=== PATIENT | male | born 1990 | race Caucasian/White ===

== ENCOUNTER 2016-12-20 09:10 | Emergency (ER) | payer SELFPAY ==
[~2016-12-20] VITALS: Ht 188 cm; Wt 77.8 kg
[~2016-12-20 09:10] MED LIST: PROT40TA PO; SUCR1TAB PO
[2016-12-20 09:13] VITALS: BP 124/78; PULSE 70; RESP 16; TEMP 97.4; O2SAT 100
[2016-12-20] MEDS ORDERED: TRAZ300T2 PO (09:24)
[2016-12-20] MEDS ORDERED: MEDR4PAK PO (09:30)
--- NOTE | 2016-12-20 09:31 | PD ---
HPI Chief Complaint: Musculoskeletal Complaint Time Seen by Provider: 09:25 Travel History International Travel<30 days: No Contact w/Intl Traveler<30days: No Traveled to known affect area: No History of Present Illness HPI The patient is a 26-year-old male who presents emergency department for left shoulder pain. The patient notes a 1 month history of left shoulder pain, thinks he may have injured his shoulder while working out at the gym. The pain is intermittent, worse over the last several days, located in the left shoulder. The pain is located just under the left acromioclavicular area, worse with abduction and certain movements, external/internal rotation does not exacerbate his pain. He denies any radiation of the pain down the left upper extremity and denies any associated numbness or tingling. The patient is left- hand dominant. He denies any blunt trauma or mechanical falls prior to the injury. Pain occasionally radiates to left scapula, however, he denies any pain in the left aspect of the neck. PFSH Past Medical History Asthma: Yes Anxiety: Yes Cardiovascular Problems: No Diminished Hearing: No Neurologic: No Psychiatric: Yes (Abuses Dilaudid, injects, DENIES DRUG USE 12/20/16) Respiratory: Yes Past Surgical History Neurologic Surgery: No Social History Alcohol Use: No Tobacco Use: No Substance Use: No (Cocoaine, Dilaudid, DENIES 12/20/16) Allergies-Medications (Allergen,Severity, Reaction): Coded Allergies: Shellfish (Unverified Allergy, Severe, Anaphylaxis, 12/20/16) Cat Dander (Verified Allergy, Mild, ITCHING, EYES WATER, 12/20/16) Reported Meds & Prescriptions Reported Meds & Active Scripts Active Reported Trazodone (Trazodone HCl) 300 Mg Tab 300 Mg PO HS Review of Systems Except as stated in HPI: all other systems reviewed are Neg Musculoskeletal: Positive: Pain, No: Myalgias, Weakness Skin: No Rash Neurologic: No: Paresthesia, Sensory Disturbance Physical Exam Narrative GENERAL: Awake, alert, very pleasant 26-year-old male who appears his stated age and is in no acute respiratory distress. SKIN: Focused skin assessment warm/dry. HEAD: Atraumatic. Normocephalic. EYES: No injection or drainage. ENT: No nasal bleeding or discharge. Mucous membranes pink and moist. NECK: Trachea midline. No JVD. No tenderness of the cervical spine or paravertebral muscles. MUSCULOSKELETAL: Tenderness of the anterior posterior aspect the left shoulder inferior to the acromioclavicular area, consistent with bursitis. Abduction against resistance reveals mild pain, however, external/internal rotation of the pain actively and passively does not exacerbate his symptoms. Positive left radial pulse. Patient is able to raise his left arm completely above his head. No tenderness of the scapula or rhomboids. NEUROLOGICAL: Awake and alert. No obvious cranial nerve deficits. Motor grossly within normal limits. Normal speech. PSYCHIATRIC: Appropriate mood and affect; insight and judgment normal. Data Data Last Documented VS Vital Signs Date Time Temp Pulse Resp B/P Pulse Ox O2 Delivery O2 Flow Rate FiO2 12/20/16 09:13 97.4 70 16 124/78 100 MDM Medical Decision Making Medical Screen Exam Complete: Yes Emergency Medical Condition: Yes Medical Record Reviewed: Yes Differential Diagnosis Differential diagnosis includes bursitis, dislocation, rotator cuff injury, radiculopathy, hematoma, contusion, fracture. Narrative Course The patient's physical examination history of more consistent with muscular skeletal pain, may be bursitis, no indication for x-ray. The patient will be placed on Medrol Dosepak and an ibuprofen. He is advised if symptoms persist to follow-up with orthopedics as he may benefit from steroid injections and/or physical therapy if symptoms persist. Patient agrees and understands. Activity as tolerated. Diagnosis Primary Impression: Bursitis Qualified Code: M75.52 - Bursitis of left shoulder Additional Impression: Left shoulder pain Qualified Code: M25.512 - Acute pain of left shoulder Patient Instructions: General Instructions Additional Instructions: Medrol Dosepak. Ibuprofen after Medrol Dosepak is completed. Range of motion activities and activity as tolerated. Follow-up with orthopedics if symptoms persist. Med/Other Pt SpecificInfo: Prescription(s) given Scripts Methylprednisolone Dosepak (Medrol Dosepak)4 Mg Dspk4 Mg PO DIRECTED #1 DSPK Ref 0 Per Pharmacist direction Prov:Lm Carey MD 12/20/16 Disposition: 01 DISCHARGE HOME Condition: Stable Lm Carey MD December 20, 2016 09:31
== END 2016-12-20 09:43 | disposition home or self-care (01) ==
LOC: PHEFT 09:10
DX: M75.52 Bursitis of left shoulder (principal); J45.909 Unspecified asthma, uncomplicated; F41.9 Anxiety disorder, unspecified
CPT/HCPCS: 99283

== ENCOUNTER 2017-01-15 16:40 | Emergency (ER) | payer SELFPAY ==
[~2017-01-15] VITALS: Ht 188 cm; Wt 79.0 kg
[~2017-01-15 16:40] MED LIST changes: +MEDR4PAK PO; -PROT40TA PO; -SUCR1TAB PO; +TRAZ300T2 PO
[2017-01-15 16:46] VITALS: BP 120/74; PULSE 58; RESP 16; TEMP 98; O2SAT 100
[2017-01-15] MEDS ORDERED: TRAZ100T6 PO (16:55)
[2017-01-15] MEDS ORDERED: CLIN1CAP6 PO (17:51)
--- NOTE | 2017-01-15 17:52 | PD ---
HPI Chief Complaint: Skin Problem Time Seen by Provider: 17:30 Travel History International Travel<30 days: No Contact w/Intl Traveler<30days: No Traveled to known affect area: No History of Present Illness HPI 26-year-old male presents emergency department for evaluation of a possible spider bite to his lower abdomen. Patient reports approximately one day ago he noticed a small area of redness on his abdomen that has become increasingly become more painful and tender in the last 24 hours. He reports the pain as sharp localized to the site of the lesion, nonradiating, no aggravating or alleviating factors, severity 6 out of 10. He denies fevers, chills. He denies previous history of abscesses. [facility] Past Medical History Medical History: Denies Significant Hx Asthma: Yes Anxiety: Yes Cardiovascular Problems: No Diminished Hearing: No Neurologic: No Psychiatric: Yes (Abuses Dilaudid, injects, DENIES DRUG USE 12/20/16) Respiratory: Yes Influenza Vaccination: No ?: Not Past Surgical History Neurologic Surgery: No Social History Alcohol Use: No Tobacco Use: No Substance Use: No (Cocoaine, Dilaudid, DENIES 12/20/16) Allergies-Medications (Allergen,Severity, Reaction): Coded Allergies: Shellfish (Unverified Allergy, Severe, Anaphylaxis, 01/15/17) Cat Dander (Verified Allergy, Mild, ITCHING, EYES WATER, 01/15/17) Reported Meds & Prescriptions Reported Meds & Active Scripts Active Reported Trazodone (Trazodone HCl) 100 Mg Tablet 100 Mg PO HS Review of Systems Except as stated in HPI: all other systems reviewed are Neg Physical Exam Narrative GENERAL: Well-nourished, well-developed patient. SKIN: Focused skin assessment warm/dry. 3 x 3 area of erythema and induration low abdomen at the pubic hairline. There is no fluctuance. HEAD: Normocephalic. EYES: No scleral icterus. No injection or drainage. NECK: Supple, trachea midline. No JVD or lymphadenopathy. CARDIOVASCULAR: Regular rate and rhythm without murmurs, gallops, or rubs. RESPIRATORY: Breath sounds equal bilaterally. No accessory muscle use. GASTROINTESTINAL: Abdomen soft, non-tender, nondistended. MUSCULOSKELETAL: No cyanosis, or edema. BACK: Nontender without obvious deformity. No CVA tenderness. Data Data Last Documented VS Vital Signs Date Time Temp Pulse Resp B/P Pulse Ox O2 Delivery O2 Flow Rate FiO2 01/15/17 16:46 98.0 58 16 120/74 100 MDM Medical Decision Making Medical Screen Exam Complete: Yes Emergency Medical Condition: Yes Differential Diagnosis Early abscess, folliculitis, cellulitis Narrative Course 26-year-old male presents emergency department for evaluation of possible insect bite versus abscess. On exam patient has what is consistent with early abscess the lower abdomen. There is no fluctuance. There is no surrounding sialitis. Patient be treated for early abscess instructed to apply warm compresses to the area follow up with his primary care doctor return when she days for possible drainage. Diagnosis Primary Impression: Abscess Referrals: Primary Care Physician Additional Instructions: The medications as prescribed. Apply warm compresses to the area several times a day. Follow-up with her primary care doctor for recheck. Scripts Clindamycin 300 Mg [id number] Mg PO Q6H #28 CAP Ref 0 Prov:Ying Clemente 01/15/17 Disposition: 01 DISCHARGE HOME Condition: Stable Ying Clemente Jan 15, 2017 17:52
== END 2017-01-15 18:20 | disposition home or self-care (01) ==
LOC: PHEFT 16:40
DX: L02.211 Cutaneous abscess of abdominal wall (principal); J45.909 Unspecified asthma, uncomplicated
CPT/HCPCS: 99283

== ENCOUNTER 2017-05-19 10:51 | Emergency (ER) | payer SELFPAY ==
[~2017-05-19] VITALS: Ht 188 cm; Wt 80.3 kg
[~2017-05-19 10:51] MED LIST changes: +CLIN1CAP6 PO; -MEDR4PAK PO; +TRAZ100T6 PO; -TRAZ300T2 PO
[2017-05-19 10:53] VITALS: BP 130/71; PULSE 74; RESP 16; TEMP 97.6; O2SAT 99
[2017-05-19] MEDS ORDERED: SODIUM CHLOR 0.9% 1000 ML INJ 1,000 ML IV SCH (11:04)
[2017-05-19] MEDS ORDERED: SODIUM CHLORIDE 0.9% FLUSH 10 ML FLUSH IV FLUSH PRN (11:15)
[2017-05-19] MEDS ORDERED: ONDANSETRON HCL 4 MG/2 ML VIAL IVP ONE (11:15)
[2017-05-19] MEDS ORDERED: MORPHINE SULFATE 4 MG/ML INJ IV PUSH ONE (11:15)
--- NOTE | 2017-05-19 11:15 | PD ---
HPI . Epigastric pain Chief Complaint: Abdominal Pain Time Seen by Provider: 11:02 Travel History International Travel<30 days: No Contact w/Intl Traveler<30days: No Traveled to known affect area: No History of Present Illness HPI This patient presents with the chief complaint of epigastric pain. Onset was couple weeks ago but it has gotten much worse over the course the last couple of days. He describes a sharp pain that radiates up into his chest and into his back. Pain is exacerbated by eating. He rates the pain 8/10. It is associated with nausea and vomiting as well as a subjective fever. Patient states that he has had this before due to pancreatitis. He states that he was using drugs and alcohol when he was first diagnosed with pancreatitis but that he has been clean for the last 2 years. [facility] Past Medical History Asthma: Yes Anxiety: Yes Cardiovascular Problems: No Diminished Hearing: No Neurologic: No Psychiatric: Yes (Abuses Dilaudid, injects, DENIES DRUG USE 12/20/16) Respiratory: Yes Past Surgical History Neurologic Surgery: No Social History Alcohol Use: No Tobacco Use: No Substance Use: No (Cocoaine, Dilaudid, DENIES 12/20/16) Allergies-Medications (Allergen,Severity, Reaction): Coded Allergies: shellfish derived (Unverified Allergy, Severe, Anaphylaxis, 05/19/17) cat dander (Unverified Allergy, Mild, ITCHING, EYES WATER, 05/19/17) Reported Meds & Prescriptions Reported Meds & Active Scripts Active Reported Trazodone (Trazodone HCl) 100 Mg Tablet 50 Mg PO HS Review of Systems Except as stated in HPI: all other systems reviewed are Neg General / Constitutional: Positive: Fever, Chills Gastrointestinal: Positive: Nausea, Vomiting, Abdominal Pain Genitourinary: No: Urgency, Frequency, Dysuria Psychiatric: No: Substance Abuse Physical Exam Narrative GENERAL: Patient is awake and alert. SKIN: warm/dry. No rash or lesions. HEAD: Normocephalic. Atraumatic. EYES: Pupils equal and round. No scleral icterus. No injection or drainage. ENT: No nasal bleeding or discharge. Mucous membranes pink and moist. NECK: Trachea midline. Full range of motion without pain.. CARDIOVASCULAR: Regular rate and rhythm. Heart sounds normal. RESPIRATORY: No accessory muscle use. Clear to auscultation. Breath sounds equal bilaterally. GASTROINTESTINAL: Abdomen soft. Epigastric tenderness. No guarding or rebound. Bowel sounds present. Nondistended. No hepatomegaly palpated. MUSCULOSKELETAL: No obvious deformities. NEUROLOGICAL: Awake and alert. No obvious cranial nerve deficits. Motor grossly within normal limits. Normal speech. PSYCHIATRIC: Appropriate mood and affect; insight and judgment normal. Data Data Last Documented VS Vital Signs Date Time Temp Pulse Resp B/P (MAP) Pulse Ox O2 Delivery O2 Flow Rate FiO2 05/19/17 10:53 97.6 74 16 130/71 (90) 99 Orders Orders Complete Blood Count With Diff (05/19/17 11:04) Comprehensive Metabolic Panel (05/19/17 11:04) Lipase (05/19/17 11:04) Lactic Acid (05/19/17 11:04) Iv Access Insert/Monitor (05/19/17 11:04) Morphine Inj (Morphine Inj) (05/19/17 11:15) Ondansetron Inj (Zofran Inj) (05/19/17 11:15) Sodium Chlor 0.9% 1000 Ml Inj (Ns 1000 M (05/19/17 11:04) Sodium Chloride 0.9% Flush (Ns Flush) (05/19/17 11:15) Labs Laboratory Tests Test 05/19/17 11:05 White Blood Count 4.8 TH/MM3 Red Blood Count 5.17 MIL/MM3 Hemoglobin 14.8 GM/DL Hematocrit 44.2 % Mean Corpuscular Volume 85.5 FL Mean Corpuscular Hemoglobin 28.6 PG Mean Corpuscular Hemoglobin Concent 33.5 % Red Cell Distribution Width 11.9 % Platelet Count 170 TH/MM3 Mean Platelet Volume 9.7 FL Neutrophils (%) (Auto) 56.6 % Lymphocytes (%) (Auto) 33.6 % Monocytes (%) (Auto) 5.9 % Eosinophils (%) (Auto) 2.9 % Basophils (%) (Auto) 1.0 % Neutrophils # (Auto) 2.8 TH/MM3 Lymphocytes # (Auto) 1.6 TH/MM3 Monocytes # (Auto) 0.3 TH/MM3 Eosinophils # (Auto) 0.1 TH/MM3 Basophils # (Auto) 0.0 TH/MM3 CBC Comment DIFF FINAL Differential Comment Blood Urea Nitrogen 14 MG/DL Creatinine 1.40 MG/DL Random Glucose 95 MG/DL Total Protein 7.5 GM/DL Albumin 4.2 GM/DL Calcium Level 9.0 MG/DL Alkaline Phosphatase 69 U/L Aspartate Amino Transf (AST/SGOT) 52 U/L Alanine Aminotransferase (ALT/SGPT) 148 U/L Total Bilirubin 1.0 MG/DL Sodium Level 138 MEQ/L Potassium Level 4.1 MEQ/L Chloride Level 103 MEQ/L Carbon Dioxide Level 30.2 MEQ/L Anion Gap 5 MEQ/L Estimat Glomerular Filtration Rate 60 ML/MIN Lactic Acid Level 1.6 mmol/L Lipase 121 U/L MDM Medical Decision Making Medical Screen Exam Complete: Yes Emergency Medical Condition: Yes Differential Diagnosis Differential diagnosis of abdominal pain includes but is not limited to gastritis, pancreatitis, hepatitis, gastroenteritis, gallbladder disease, constipation, urinary retention, UTI, peptic ulcer disease, diverticulitis or appendicitis Narrative Course Patient presents with epigastric abdominal pain. He has a history of pancreatitis and states that this pain is similar. Routine labs have been ordered. An IV has been started and he will be treated with IV fluids, IV Zofran and IV morphine. The decision regarding radiographic studies will be made after lab results are known. He has a soft abdomen signed so I do not suspect a surgical problem. The patient refused morphine because of his history of previous substance abuse. CBC & BMP Diagram 05/19/17 11:05 Total Protein 7.5, Albumin 4.2, Calcium Level 9.0, Alkaline Phosphatase 69, Aspartate Amino Transf (AST/SGOT) 52 H, Alanine Aminotransferase (ALT/SGPT) 148 H, Total Bilirubin 1.0 LA 1.6 I have not discovered an etiology for his current epigastric pain. His liver function studies are elevated but are improved from the past. I will try him on an H2 mateus. I will give him a prescription for Zofran as needed for nausea. The history, exam, diagnostic testing, and current condition do not suggest any significant pathology to warrant further testing, continued ED treatment, admission, or surgical evaluation at this point. No EMC was found. The patient 's condition is stable and appropriate for discharge. Diagnosis Primary Impression: Epigastric pain Patient Instructions: Epigastric Pain (ED), General Instructions Med/Other Pt SpecificInfo: Prescription(s) given Scripts Ondansetron (Zofran) 4 Mg Tab 4 MG PO Q6HR Y for NAUSEA OR VOMITING, #12 TAB 0 Refills Prov: Oeters,Vida Truong MD 05/19/17 Ranitidine (Zantac) 150 Mg Tab 150 MG PO BID for Reduce Stomach Acid, #60 TAB 0 Refills Prov: Vida Giraldo MD 05/19/17 Disposition: 01 DISCHARGE HOME Condition: Stable Vida Giraldo MD May 19, 2017 11:15
[2017-05-19 11:32] LABS: AUTOMATED NEUTROPHIL # 2.8 TH/MM3 (1.8-7.7); EOSINOPHIL # 0.1 TH/MM3 (0-0.4); EOSINOPHIL % 2.9 % (0.0-4.0); HEMATOCRIT 44.2 % (39.0-51.0); HEMOGLOBIN 14.8 GM/DL (13.0-17.0); LYMPH % 33.6 % (9.0-44.0); LYMPHOCYTE # 1.6 TH/MM3 (1.0-4.8); MEAN CELL VOLUME 85.5 FL (80.0-100.0); MEAN CORPUSCULAR HEMOGLOBIN 28.6 PG (27.0-34.0); MEAN CORPUSCULAR HGB CONC 33.5 % (32.0-36.0); MEAN PLATELET VOLUME 9.7 FL (7.0-11.0); MONO % 5.9 % (0.0-8.0); MONOCYTE # 0.3 TH/MM3 (0-0.9); NEUT % 56.6 % (16.0-70.0); PLATELET COUNT 170 TH/MM3 (150-450); RED BLOOD COUNT 5.17 MIL/MM3 (4.50-5.90); RED CELL DISTRIBUTION WIDTH 11.9 % (11.6-17.2); WHITE BLOOD COUNT 4.8 TH/MM3 (4.0-11.0)
[2017-05-19 11:34] LABS: CHLORIDE 103 MEQ/L (98-107); SODIUM (NA) 138 MEQ/L (136-145)
[2017-05-19 11:37] LABS: ALBUMIN 4.2 GM/DL (3.4-5.0); BICARBONATE 30.2 MEQ/L (21.0-32.0); GLUCOSE,RANDOM 95 MG/DL (74-106); LIPASE 121 U/L (73-393)
[2017-05-19 11:38] LABS: BLOOD UREA NITROGEN 14 MG/DL (7-18)
[2017-05-19 11:40] LABS: ALT (GPT) 148 U/L (12-78); AST (GOT) 52 U/L (15-37); GLOMERULAR FILTRATION RATE 60 ML/MIN (>89)
[2017-05-19 11:42] LABS: TOTAL PROTEIN 7.5 GM/DL (6.4-8.2)
[2017-05-19 11:43] LABS: ALKALINE PHOSPHATASE 69 U/L (45-117)
[2017-05-19] MEDS ORDERED: ZOFR4TAB PO (11:50)
[2017-05-19] MEDS ORDERED: ZANT150T2 PO (11:50)
[2017-05-19 12:26] VITALS: BP 106/57
== END 2017-05-19 12:29 | disposition home or self-care (01) ==
LOC: PHED 10:51
DX: R10.13 Epigastric pain (principal); R11.2 Nausea with vomiting, unspecified; R50.9 Fever, unspecified; Z87.09 Personal history of other diseases of the respiratory system; Z86.59 Personal history of other mental and behavioral disorders; Z87.19 Personal history of other diseases of the digestive system
CPT/HCPCS: 80053; 83605; 83690; 85025; 96361; 96374; 99284; J2405; J7030

== ENCOUNTER 2017-05-31 21:16 | Emergency (ER) | payer SELFPAY ==
[~2017-05-31] VITALS: Ht 188 cm; Wt 80.0 kg
[~2017-05-31 21:16] MED LIST changes: -CLIN1CAP6 PO; +TRAZ100T10 PO; -TRAZ100T6 PO; +ZANT150T2 PO; +ZOFR4TAB PO
[2017-05-31 21:20] VITALS: BP 124/79; PULSE 89; RESP 16; TEMP 98.9; O2SAT 99
[2017-05-31 23:04] VITALS: BP 127/83; PULSE 86; RESP 16; O2SAT 99
[2017-06-01] LABS: AUTOMATED NEUTROPHIL # 3.5 TH/MM3 (1.8-7.7); BASOPHIL # 0.1 TH/MM3 (0-0.2); BASOPHIL % 0.9 % (0.0-2.0); EOSINOPHIL # 0.3 TH/MM3 (0-0.4); EOSINOPHIL % 4.2 % (0.0-4.0); HEMATOCRIT 43.3 % (39.0-51.0); HEMO FLAGS DIFF FINAL; LYMPH % 35.4 % (9.0-44.0); LYMPHOCYTE # 2.4 TH/MM3 (1.0-4.8); MEAN CELL VOLUME 86.5 FL (80.0-100.0); MEAN CORPUSCULAR HEMOGLOBIN 29.6 PG (27.0-34.0); MEAN CORPUSCULAR HGB CONC 34.2 % (32.0-36.0); NEUT % 51.5 % (16.0-70.0); PLATELET COUNT 180 TH/MM3 (150-450); RED BLOOD COUNT 5.01 MIL/MM3 (4.50-5.90); RED CELL DISTRIBUTION WIDTH 12.7 % (11.6-17.2); WHITE BLOOD COUNT 6.8 TH/MM3 (4.0-11.0)
--- NOTE | 2017-06-01 00:23 | PD ---
HPI Chief Complaint: Neuro Symptoms/ Deficits Time Seen by Provider: 22:38 Travel History International Travel<30 days: No Contact w/Intl Traveler<30days: No Traveled to known affect area: No History of Present Illness HPI pt with no PMHx pt had sudden onset of left facial numbness after sex he orgasmed then 10 minutes later he felt this numbness and lip left also felt weak PFSH Past Medical History Asthma: Yes Anxiety: Yes Cardiovascular Problems: No Diminished Hearing: No Neurologic: No Psychiatric: Yes (Abuses Dilaudid, injects, DENIES DRUG USE 12/20/16) Respiratory: Yes Immunizations Current: Yes Past Surgical History Neurologic Surgery: No Social History Alcohol Use: No Tobacco Use: No Substance Use: No (HX of narcotic abuse ) Allergies-Medications (Allergen,Severity, Reaction): Coded Allergies: shellfish derived (Unverified Allergy, Severe, Anaphylaxis, 05/31/17) cat dander (Unverified Allergy, Mild, ITCHING, EYES WATER, 05/31/17) Reported Meds & Prescriptions Reported Meds & Active Scripts Active Zofran (Ondansetron HCl) 4 Mg Tab 4 Mg PO Q6HR PRN Zantac (Ranitidine HCl) 150 Mg Tab 150 Mg PO BID Reported Trazodone (Trazodone HCl) 100 Mg Tablet 50 Mg PO HS Review of Systems Except as stated in HPI: all other systems reviewed are Neg Neurologic: Positive: Paresthesia (left face and left arm) Physical Exam Narrative GENERAL: non toxic no acute distress SKIN: Warm and dry. HEAD: Atraumatic. Normocephalic. EYES: Pupils equal and round. No scleral icterus. No injection or drainage. ENT: No nasal bleeding or discharge. Mucous membranes pink and moist. NECK: Trachea midline. No JVD. CARDIOVASCULAR: Regular rate and rhythm. RESPIRATORY: No accessory muscle use. Clear to auscultation. Breath sounds equal bilaterally. GASTROINTESTINAL: Abdomen soft, non-tender, nondistended. Hepatic and splenic margins not palpable. MUSCULOSKELETAL: Extremities without clubbing, cyanosis, or edema. No obvious deformities. NEUROLOGICAL: Facial muscle symmetric no drop or weakness all muscles 5/5 . pt awake and alert. No obvious cranial nerve deficits. Motor grossly within normal limits. Five out of 5 muscle strength in the arms and legs. Decrease sensation reports on skin sensation decreased Left face arm Normal speech. PSYCHIATRIC: Appropriate mood and affect; insight and judgment normal. Data Data Last Documented VS Vital Signs Date Time Temp Pulse Resp B/P (MAP) Pulse Ox O2 Delivery O2 Flow Rate FiO2 06/01/17 01:15 88 16 130/86 (101) 99 05/31/17 23:04 Room Air 05/31/17 21:20 98.9 Orders Orders Electrocardiogram (05/31/17 ) Ct Brain W/O Iv Contrast(Rout) (05/31/17 ) Complete Blood Count With Diff (05/31/17 23:30) Comprehensive Metabolic Panel (05/31/17 23:30) Aspirin Chew (Aspirin Chew) (06/01/17 09:00) Sodium Chlor 0.9% 1000 Ml Inj (Ns 1000 M (06/01/17 01:15) Ed Discharge Order (06/01/17 01:46) Labs Laboratory Tests Test 05/31/17 23:35 White Blood Count 6.8 TH/MM3 Red Blood Count 5.01 MIL/MM3 Hemoglobin 14.8 GM/DL Hematocrit 43.3 % Mean Corpuscular Volume 86.5 FL Mean Corpuscular Hemoglobin 29.6 PG Mean Corpuscular Hemoglobin Concent 34.2 % Red Cell Distribution Width 12.7 % Platelet Count 180 TH/MM3 Mean Platelet Volume 10.0 FL Neutrophils (%) (Auto) 51.5 % Lymphocytes (%) (Auto) 35.4 % Monocytes (%) (Auto) 8.0 % Eosinophils (%) (Auto) 4.2 % Basophils (%) (Auto) 0.9 % Neutrophils # (Auto) 3.5 TH/MM3 Lymphocytes # (Auto) 2.4 TH/MM3 Monocytes # (Auto) 0.5 TH/MM3 Eosinophils # (Auto) 0.3 TH/MM3 Basophils # (Auto) 0.1 TH/MM3 CBC Comment DIFF FINAL Differential Comment Blood Urea Nitrogen 13 MG/DL Creatinine 1.62 MG/DL Random Glucose 80 MG/DL Total Protein 7.8 GM/DL Albumin 4.4 GM/DL Calcium Level 9.4 MG/DL Alkaline Phosphatase 77 U/L Aspartate Amino Transf (AST/SGOT) 62 U/L Alanine Aminotransferase (ALT/SGPT) 155 U/L Total Bilirubin 0.4 MG/DL Sodium Level 140 MEQ/L Potassium Level 4.5 MEQ/L Chloride Level 102 MEQ/L Carbon Dioxide Level 30.9 MEQ/L Anion Gap 7 MEQ/L Estimat Glomerular Filtration Rate 51 ML/MIN MDM Medical Decision Making Medical Screen Exam Complete: Yes Emergency Medical Condition: Yes Differential Diagnosis TIA verse vasospasm , verse RIND Narrative Course CT normal labs creatinie 1.6 NS IV liter and then Discharged , His symptoms resolved while in the ED told close follow up with his PCP for MRI if sx return, ASA 162 po given Diagnosis Primary Impression: Paresthesia Referrals: Rupali Rowley MD Patient Instructions: General Instructions, Paresthesia (ED) Disposition: 01 DISCHARGE HOME Condition: Good Nicolas Menjivar MD Jun 01, 2017 00:23
[2017-06-01 00:24] LABS: ALKALINE PHOSPHATASE 77 U/L (45-117); TOTAL BILIRUBIN ADULT 0.4 MG/DL (0.2-1.0)
[2017-06-01 00:28] LABS: ALT (GPT) 155 U/L (12-78); ANION GAP 7 MEQ/L (5-15); AST (GOT) 62 U/L (15-37); BICARBONATE 30.9 MEQ/L (21.0-32.0); BLOOD UREA NITROGEN 13 MG/DL (7-18); CHLORIDE 102 MEQ/L (98-107); GLOMERULAR FILTRATION RATE 51 ML/MIN (>89); POTASSIUM 4.5 MEQ/L (3.5-5.1); SODIUM (NA) 140 MEQ/L (136-145)
[2017-06-01] MEDS: ASPIRIN 81 MG CHEW TAB CHEW SCH ×2 (00:30→01:28)
--- NOTE | 2017-06-01 00:48 | RADRPT ---
EXAM DATE/TIME: 05/31/2017 23:53 [facility] COMPARISON: No previous studies available for comparison. INDICATIONS : Left facial numbness and tingling in left arm. RADIATION DOSE: 56.41 CTDIvol (mGy) MEDICAL HISTORY : Asthma. Substance abuse. SURGICAL HISTORY : None. ENCOUNTER: Initial ACUITY: 1 day PAIN SCALE: 0/10 LOCATION: cranial TECHNIQUE: Multiple contiguous axial images were obtained of the head. Using automated exposure control and adj ustment of the mA and/or kV according to patient size, radiation dose was kept as low as reasonably a chievable to obtain optimal diagnostic quality images. DICOM format image data is available electro nically for review and comparison. FINDINGS: CEREBRUM: The ventricles are normal for age. No evidence of midline shift, mass lesion, hemorrhage or acute in farction. No extra-axial fluid collections are seen. POSTERIOR FOSSA: The cerebellum and brainstem are intact. The 4th ventricle is midline. The cerebellopontine angle i s unremarkable. EXTRACRANIAL: The visualized portion of the orbits is intact. SKULL: The calvaria is intact. No evidence of skull fracture. CONCLUSION: No acute intracranial findings. Tanner Meyer MD on June 01, 2017 at 0:34 Board Certified Radiologist. This report was verified electronically.
[2017-06-01 01:15] VITALS: BP 130/86
[2017-06-01] MEDS ORDERED: SODIUM CHLOR 0.9% 1000 ML INJ 1,000 ML IV ONE (01:15)
--- NOTE | 2017-06-01 12:16 | EKG ---
Date Performed: 05/31/2017 Time Performed: 22:04:13 PTAGE: 26 years EKG: SINUS BRADYCARDIA BORDERLINE ECG PREVIOUS TRACING : 04/07/2015 17.48 Consider anteroseptal ischemia DOCTOR: John Lynn Interpretating Date/Time 06/01/2017 12:15:06
== END 2017-06-01 01:26 | disposition home or self-care (01) ==
LOC: NEPC 21:16
DX: R20.2 Paresthesia of skin (principal)
CPT/HCPCS: 70450; 80053; 85025; 93005; 99285; J7030